=== PATIENT | female | born 1985 | race Caucasian/White ===

== ENCOUNTER 2018-11-02 11:30 | Emergency (ER) | payer OTHER ==
[2018-11-02 12:24] VITALS: BP 117/75
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
== END 2018-11-02 13:08 | disposition home or self-care (01) ==
LOC: UCCORT 11:30
DX: S09.90XA Unspecified injury of head, initial encounter (principal); T14.8XXA Other injury of unspecified body region, initial encounter; Y04.2XXA Assault by strike against or bumped into by another person, initial encounter; Y92.199 Unspecified place in other specified residential institution as the place of occurrence of the external cause; Y99.0 Civilian activity done for income or pay; Z87.820 Personal history of traumatic brain injury; Z88.5 Allergy status to narcotic agent
CPT/HCPCS: 99201; G0463

== ENCOUNTER 2018-11-04 18:24 | Emergency (ER) | payer OTHER ==
[2018-11-04 18:45] VITALS: BP 123/86
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
--- NOTE | 2018-11-05 10:10 | UC ---
- Progress Note Progress Note: Final x-ray reading reviewed. No acute fracture which agrees with provider preliminary reading. No change in plan of care. Course/Dx - Diagnoses Provider Diagnoses: Neck pain, Headache Discharge - Sign-Out/Discharge Documenting (check all that apply): Patient Departure, Post-Discharge Follow Up All imaging exams completed and their final reports reviewed: Yes - Discharge Plan Condition: Stable Disposition: HOME Patient Education Materials: Cervical Strain (ED), General Headache (ED), Neck Pain (ED) Forms: *Work Release Referrals: Care [facility] [Outside] No Primary Care Phys,NOPCP [Primary Care Provider] - - Billing Disposition and Condition Condition: STABLE Disposition: Home
== END 2018-11-04 20:20 | disposition home or self-care (01) ==
LOC: UCCORT 18:24
DX: Z51.89 Encounter for other specified aftercare (principal); Z88.5 Allergy status to narcotic agent; M54.2 Cervicalgia; R51 Headache
CPT/HCPCS: 72050; 99211; G0463